=== PATIENT | female | born 1995 | race Caucasian/White ===

== ENCOUNTER 2016-11-21 14:07 | Emergency (ER) | payer OTHER ==
[~2016-11-21] VITALS: Ht 167.6 cm; Wt 95.3 kg
--- NOTE | 2016-11-21 14:28 | PHYS DOC ---
Past History Past Medical History: Asthma, Depression Past Surgical History: No Surgical History Alcohol Use: None Drug Use: None Adult General Chief Complaint Chief Complaint: KNEE INJURY HPI HPI This is a 21-year-old female with history of asthma who states she developed significant right knee pain while running up hill. She still states she felt a sharp sensation to her right knee and then fell forward. She does states she has some mild anterior tibial pain as well as right knee pain that denies any other injuries. She denies hitting her head. She believes she got symptomatically short of breath because of her asthma. On my initial assessment , the patient is saturating near 100% on room air and in no acute distress whatsoever. Review of Systems Review of Systems Constitutional: Denies fever or chills [] Eyes: Denies change in visual acuity, redness, or eye pain [] HENT: Denies nasal congestion or sore throat [] Respiratory: Denies cough or shortness of breath [] Cardiovascular: No additional information not addressed in HPI [] GI: Denies abdominal pain, nausea, vomiting, bloody stools or diarrhea [] : Denies dysuria or hematuria [] Musculoskeletal: Denies back pain or joint pain [] Integument: Denies rash or skin lesions [] Neurologic: Denies headache, focal weakness or sensory changes [] Endocrine: Denies polyuria or polydipsia [] Current Medications Current Medications Current Medications Medications (Trade) Dose Ordered Sig/Courtney Start Time Stop Time Status Last Admin Dose Admin Acetaminophen/ Hydrocodone Bitart (Lortab 5/325) 1 tab 1X ONCE 11/21/16 14:30 11/21/16 14:31 UNV Allergies Allergies Allergies Coded Allergies Type Severity Reaction Last Updated Verified amoxicillin Allergy Unknown 01/08/16 Yes clavulanic acid Allergy Unknown 01/08/16 Yes ondansetron Allergy Unknown 01/08/16 Yes Physical Exam Physical Exam Constitutional: Well developed, well nourished, no acute distress, non-toxic appearance. [] HENT: Normocephalic, atraumatic, bilateral external ears normal, oropharynx moist, no oral exudates, nose normal. [] Eyes: PERRLA, EOMI, conjunctiva normal, no discharge. [] Neck: Normal range of motion, no tenderness, supple, no stridor. [] Cardiovascular:Heart rate regular rhythm, no murmur [] Lungs & Thorax: Bilateral breath sounds clear to auscultation [] Abdomen: Bowel sounds normal, soft, no tenderness, no masses, no pulsatile masses. [] Skin: Warm, dry, no erythema, no rash. [] Back: No tenderness, no CVA tenderness. [] Extremities: Right sided knee tenderness to palpation, there is no palpable deformity, no cyanosis, no clubbing, ROM limited in right knee secondary to pain , no edema. [] Neurologic: Alert and oriented X 3, normal motor function, normal sensory function, no focal deficits noted. [] Psychologic: Affect normal, judgement normal, mood normal. [] EKG EKG [] Radiology/Procedures Radiology/Procedures [] Course & Med Decision Making Course & Med Decision Making Pertinent Labs and Imaging studies reviewed. (See chart for details) This otherwise healthy 21-year-old female will have a knee x-ray and a dose of [place]. Her history is more consistent with a soft tissue injury of her knee. Likely be placed in a knee immobilizer and given crutches and told to follow with her primary care doctor or the surgeon if her symptoms should persist. Her right knee x-rays negative for any acute bony injury. Patient will be placed in a knee immobilizer provided crutches. Follow-up appointment is recommended that she still could have a significant tendon or ligament injury. She will remain nonweightbearing on that side and follow up next several days if her symptoms should persist. She was instructed to avoid any strenuous activities until that time. Dragon Disclaimer Dragon Disclaimer This chart was dictated in whole or in part using Voice Recognition software in a busy, high-work load, and often noisy Emergency Department environment. It may contain unintended and wholly unrecognized errors or omissions. Departure Departure: Impression: Primary Impression: Right knee injury Disposition: 01 HOME, SELF-CARE Condition: STABLE Referrals: IGNACIO MAZA MD (PCP) Patient Instructions: Knee Immobilizer, [id number], Knee Pain, [id number] Additional Instructions: Knee immobilizer and use crutches until he can be reevaluated regular doctor for your knee injury. Continue to take 800 mg of ibuprofen every 6 hours as needed for symptoms. Take your pain medication only as needed. Keep the extremity elevated and iced to help with any swelling. Avoid any stress activities until that time that you can be reevaluated. Scripts Hydrocodone Bit/Acetaminophen ([place] 5-325 Tablet)1 Each Tablet1 Tab PO PRN Q6HRS PRN PAIN #6 TAB Ref 0 Prov:MOISES CHRISTIANSON DO 11/21/16 MOISES CHRISTIANSON DO Nov 21, 2016 14:28
[2016-11-21] MEDS ORDERED: HYDROCODONE/APAP 5/325MG TABLET. PO ONE (14:45)
--- NOTE | 2016-11-21 15:11 | RAD ---
Right knee, 3 views, 11/21/2016: History: Fall, pain No fracture or or dislocation is identified. No significant joint effusion is seen. IMPRESSION: No acute right knee abnormality is detected.
[2016-11-21] MEDS ORDERED: HYDR-971 PO (15:33)
[2016-11-21 15:40] VITALS: BP 114/66
== END 2016-11-21 15:45 | disposition home or self-care (01) ==
LOC: ER 14:07
DX: S89.91XA Unspecified injury of right lower leg, initial encounter (principal); J45.909 Unspecified asthma, uncomplicated; Z88.1 Allergy status to other antibiotic agents; Z88.8 Allergy status to other drugs, medicaments and biological substances; W19.XXXA Unspecified fall, initial encounter; Y93.02 Activity, running; Y99.8 Other external cause status; Y92.828 Other wilderness area as the place of occurrence of the external cause
CPT/HCPCS: 29505; 73562; 81025; 84703; 99284-25

== ENCOUNTER 2017-06-15 13:27 | Emergency (ER) | payer BC, OTHER ==
[~2017-06-15 13:27] MED LIST: HYDR-971 PO
[2017-06-15 13:35] VITALS: BP 104/65
[2017-06-15] MEDS ORDERED: PRED20TA PO (13:55)
[2017-06-15] MEDS ORDERED: CLIN300C8 PO (13:55)
--- NOTE | 2017-06-15 13:58 | PHYS DOC ---
General Chief Complaint: SORE THROAT Stated Complaint: SORE THROAT Time Seen by MD: 13:55 Source: patient Exam Limitations: no limitations Problems: History of Present Illness Initial Comments Patient is a 22-year-old female who comes in the ED complaining of sore throat. Patient states she's had a worsening sore throat since last night. She's had pain with swallowing no actual dyspnea but states she did wake up gasping for breath and had trouble sleeping all night. She called into work sick today and needs a note, she's had no measured fevers but has had chills and sweats as well as body ache and headache. She's been drinking well but not eating many solids foods due to discomfort. No neck stiffness rash nausea vomiting or other symptoms. Timing/Duration: gradual, yesterday Severity: moderate Location: throat Prearrival Treatment: over the counter meds Modifying Factors: worse with coughing Associated Symptoms: fever, nasal congestion/drainage, poor solids intake, sore throat Allergies: Coded Allergies: amoxicillin (Verified Allergy, Unknown, 01/08/16) clavulanic acid (Verified Allergy, Unknown, 01/08/16) ondansetron (Verified Allergy, Unknown, 01/08/16) Past Medical History Medical History: asthma, other (depression, anxiety) Surgical History: noncontributory Social History Smoker: quit greater than 1 year Alcohol: occasionally Drugs: none Constitutional: see HPI Ears: denies dizziness, denies pain, denies tinnitus Nose: denies clots, congestion, denies epistaxis Throat: see HPI, denies neck stiffness, denies difficulty with fluids Respiratory: cough, denies shortness of breath, denies stridor, denies wheezing Cardiovascular: denies chest pain, denies palpitations Gastrointestinal: denies abdominal pain, denies nausea, denies vomiting Physical Exam General Appearance: no apparent distress Eyes: bilateral eye normal inspection, bilateral eye PERRL, bilateral eye EOMI Ears: bilateral ear auricle normal, bilateral ear canal normal, bilateral ear TM normal Nose: normal inspection Mouth/Throat: normal mouth inspection, pharynx tenderness (no exudate or vesicles), tonsillar swelling (tonsils 2+ airway is patent) Neck: non-tender, supple, lymphadenopathy (R), lymphadenopathy (L) Cardiovascular/Respiratory: normal breath sounds, no respiratory distress Neurologic/Psychiatric: stitcher around II-XII nml as tested, no motor/sensory deficits, alert, normal mood/affect, oriented x 3 Skin: normal color, warm/dry Orders, Labs, Meds We'll treat with antibiotics for tonsillitis as well as steroids to decrease tonsillar swelling and preserve the airway. I discussed [id number] prescription medications as well as time off from work. I discussed oral hydration and dietary modifications and signs and symptoms to monitor for as well as indications to return urgently were discussed. Patient's questions were answered she was provided no for work and she expressed agreement and understanding with the treatment plan. Departure Time of Disposition: 13:57 Disposition: 01 HOME, SELF-CARE Diagnosis: tonsillitis Condition: GOOD Patient Instructions: Tonsillitis, [id number] Additional Instructions: Off work tomorrow, note given. Aggressive hydration with Gatorade or water. [id number] Tylenol, ibuprofen, and analgesic throat sprays as needed. Continue current medications. Prescription: Clindamycin, prednisone Follow-up with your doctor in 5-7 days for recheck. Return to the ED with new or changing symptoms. DIANN URBINA DO Jun 15, 2017 13:58
== END 2017-06-15 14:00 | disposition home or self-care (01) ==
LOC: ER 13:27
DX: J03.90 Acute tonsillitis, unspecified (principal); J45.909 Unspecified asthma, uncomplicated; Z87.891 Personal history of nicotine dependence; Z88.1 Allergy status to other antibiotic agents; Z88.8 Allergy status to other drugs, medicaments and biological substances
CPT/HCPCS: 99283

== ENCOUNTER 2020-05-18 06:02 | Emergency (ER) | payer BC, OTHER ==
[~2020-05-18] VITALS: Ht 167.6 cm; Wt 93.6 kg
[~2020-05-18 06:02] MED LIST changes: +CLIN300C8 PO; +HYDR-3165 PO; -HYDR-971 PO; +PRED20TA PO
[2020-05-18 06:05] VITALS: BP 123/71
--- NOTE | 2020-05-18 06:30 | PHYS DOC ---
Past History Past Medical History: Anxiety, Asthma, Depression Past Surgical History: Other Alcohol Use: Occasionally Drug Use: None General Adult EDM: Chief Complaint: LOWER EXT PAIN HPI: HPI: Patient is a 25 year old female who presents for evaluation of moderate pain and swelling to her right knee. Symptoms have been worse over the past couple of days. She now has difficulty bearing weight on the affected knee due to pain. Patient has a longstanding history of rheumatoid arthritis and does see a cigarette maker. Patient currently takes Plaquenil but is out of her meloxicam. She also was starting Enbrel injections shortly as well. Patient is tearful and in mild to moderate distress on arrival. Patient had a recent steroid injection on May 10 as well in that affected knee Review of Systems: Review of Systems: Constitutional: Denies fever or chills Eyes: Denies change in visual acuity HENT: Denies nasal congestion or sore throat Respiratory: Denies cough or shortness of breath Cardiovascular: Denies chest pain or edema GI: Denies abdominal pain, nausea, vomiting, bloody stools or diarrhea : Denies dysuria Musculoskeletal: Denies back pain right knee joint pain Integument: Denies rash Neurologic: Denies headache, focal weakness or sensory changes Endocrine: Denies polyuria or polydipsia Lymphatic: Denies swollen glands Psychiatric: Denies depression or anxiety Allergies: Allergies: Allergies Coded Allergies Type Severity Reaction Last Updated Verified amoxicillin Allergy Unknown 01/08/16 Yes clavulanic acid Allergy Unknown 01/08/16 Yes ondansetron Allergy Unknown 01/08/16 Yes Physical Exam: PE: Constitutional: Well developed, well nourished, mild acute distress, non-toxic appearance. [] HENT: Normocephalic, atraumatic, bilateral external ears normal, oropharynx moist, no oral exudates, nose normal. [] Eyes: PERRL, EOMI, conjunctiva normal, no discharge. [] Neck: Normal range of motion, no tenderness, supple. [] Cardiovascular:Heart rate regular rhythm, no murmur [] Lungs & Thorax: Bilateral breath sounds clear to auscultation [] Abdomen: Bowel sounds normal, soft, no tenderness. [] Skin: Warm, dry, no erythema, no rash. [] Back: No tenderness. [] Extremities: moderate right knee tenderness, no cyanosis, ROM intact, right edema but not ballotable. [] Neurologic: Alert and oriented, normal motor function, normal sensory function, no focal deficits noted. [] Psychologic: Affect abnormal, judgement normal, mood abnormal. [] Current Patient Data: Labs: [address] [address] IMAGING REPORT Signed PATIENT: LUPE BENITEZ ACCOUNT: [id number] : 1995 LOCATION: ER AGE: 25 SEX: F EXAM STATUS: REG ER ORD. PHYSICIAN: MARBELLA BARNES DO REASON: pain, swelling PROCEDURE: KNEE RIGHT 3V Right knee 3 views. HISTORY: Pain and swelling 3 views were taken of the right knee. There is not evidence of an acute fracture. There is a large joint effusion. No other acute osseous abnormality is noted. MRI could be of benefit. IMPRESSION: 1. Prominent joint effusion. 2. No acute fracture. Electronically signed by: Jr Phillips MD (05/18/2020 7:08 AM) [id number] DICTATED AND SIGNED BY: JR PHILLIPS MD DATE: 05/18/20707 CC: MARBELLA BARNSE DO; IGNACIO MAZA MD ~ EKG: EKG: [] Radiology/Procedures: Radiology/Procedures: [] Heart Score: Risk Factors: Risk Factors: DM, Current or recent (<one month) smoker, HTN, HLP, family history of CAD, obesity. Risk Scores: Score 0 - 3: 2.5% MACE over next 6 weeks - Discharge Home Score 4 - 6: 20.3% MACE over next 6 weeks - Admit for Clinical Observation Score 7 - 10: 72.7% MACE over next 6 weeks - Early Invasive Strategies Course & Med Decision Making: Course & Med Decision Making Pertinent Labs and Imaging studies reviewed. (See chart for details) [] Dragon Disclaimer: Vee Disclaimer: This electronic medical record was generated, in whole or in part, using a voice recognition dictation system. 0715 stable, no fractures noted on x-ray, right knee effusion noted. Patient was given right knee immobilizer and crutches to use as directed for the next 5 days. Work note for 2 days off given as well. Prescription for meloxicam and Medrol Dosepak given. Supportive care recommended. Patient is to see her cigarette maker right away in follow-up Departure Departure: Impression: Primary Impression: Effusion, right knee Additional Impression: Rheumatoid arthritis Qualified Codes: M06.9 - Rheumatoid arthritis, unspecified Disposition: HOME SELF CARE/HOMELESS Condition: STABLE Referrals: IGNACIO MAZA MD (PCP) Patient Instructions: Knee Effusion, Rheumatoid Arthritis Additional Instructions: Rest ice today and elevate the affected right knee. Take medication as directed. Use the knee immobilizer for the next few days as well as crutches to help limit weightbearing on that affected leg Scripts Methylprednisolone (MEDROL) 4 Mg Tab.ds.pk 1 PKG PO UD for arthritis, #1 PKG Prov: MARBELLA BARNES DO 05/18/20 Meloxicam (MELOXICAM) 7.5 Mg Tablet 1 TAB PO DAILY for rheumatoid arthritis for 30 Days, #30 TAB 0 Refills Prov: MARBELLA BARNES DO 05/18/20 MARBELLA BARNES DO May 18, 2020 06:30
[2020-05-18] MEDS ORDERED: KETOROLAC 30 MG/ML VIAL. IM ONE (07:00)
--- NOTE | 2020-05-18 07:10 | RAD ---
Right knee 3 views. HISTORY: Pain and swelling 3 views were taken of the right knee. There is not evidence of an acute fracture. There is a large joint effusion. No other acute osseous abnormality is noted. MRI could be of benefit. IMPRESSION: 1. Prominent joint effusion. 2. No acute fracture. Electronically signed by: Jr Phillips MD (05/18/2020 7:08 AM) [id number]
[2020-05-18] MEDS ORDERED: METH4TAB2 PO (07:23)
[2020-05-18] MEDS ORDERED: MELO7.5T29 PO (07:23)
== END 2020-05-18 08:05 | disposition home or self-care (01) ==
LOC: ER 06:02
DX: M06.9 Rheumatoid arthritis, unspecified (principal); M25.561 Pain in right knee; R60.0 Localized edema; F41.9 Anxiety disorder, unspecified; J45.909 Unspecified asthma, uncomplicated; F32.9 Major depressive disorder, single episode, unspecified; Z98.890 Other specified postprocedural states; Z88.1 Allergy status to other antibiotic agents; Z88.8 Allergy status to other drugs, medicaments and biological substances
CPT/HCPCS: 29515; 73562; 96372; 99283; J1885

== ENCOUNTER 2020-06-03 17:34 | Emergency (ER) | payer OTHER ==
[~2020-06-03] VITALS: Ht 167.6 cm; Wt 93.6 kg
[~2020-06-03 17:34] MED LIST changes: +MELO7.5T29 PO; +METH4TAB2 PO
--- NOTE | 2020-06-03 18:29 | PHYS DOC ---
Past History Past Medical History: Anxiety, Arthritis, Asthma, Depression Past Surgical History: Other Alcohol Use: None Drug Use: None Adult General Chief Complaint Chief Complaint: KNEE INJURY HPI HPI Patient is a 25 year old female who presents with right knee swelling after doing heavy lifting at work this past . Patient states she has a long severe history of rheumatoid arthritis and is currently taking Enbrel injections at home once a week. Patient states that she does get flareups every now and then reporting her last knee swelling flareup approximately a month ago. Patient states that she usually gets good relief with elevation and an injection of Toradol. Patient denies any acute injury to her knee stating that this looks like her normal rheumatoid arthritis flareup after working too hard. Patient rates her pain a 3/10 pain on a 1-10 pain scale. Patient denies a need for a work excuse stating that she has to go to work. Patient denies any recent fever or chills, any visual changes, nasal congestion, cough or shortness of breath. Patient denies chest pain abdominal pains nausea vomiting diarrhea constipation. Patient denies any problems urinating, denies any STI concerns. Patient denies any back pain skin rashes, headaches, focal weaknesses or sensory changes. Patient denies any increased urination or increased thirst. Patient denies swelling of her glands. Patient denies depressions, anxieties, homicidal or suicidal ideations. Patient denies coming in contact with anybody that has the COVID-19 virus, denies any symptoms for the COVID-19 virus, she does not wish to be tested today. Review of Systems Review of Systems Constitutional: Denies fever or chills Eyes: Denies change in visual acuity, redness, or eye pain HENT: Denies nasal congestion or sore throat Respiratory: Denies cough or shortness of breath Cardiovascular: Denies chest pain or edema. GI: Denies abdominal pain, nausea, vomiting, bloody stools or diarrhea : Denies dysuria or hematuria Musculoskeletal: Denies back pain, complains of pain to the right knee along with swelling to the right knee since doing hard work 2 days ago on . Integument: Denies rash or skin lesions Neurologic: Denies headache, focal weakness or sensory changes Endocrine: Denies polyuria or polydipsia Psychiatric: Patient denies homicidal or suicidal ideation, denies recent depressions or anxieties. All other systems were reviewed and found to be within normal limits, except as documented in this note. Current Medications Current Medications Patient states that she takes Enbrel injections at home once per week. Patient also takes meloxicam, and occasional Solu-Medrol when prescribed by her primary care physician, as needed [place] 5-325 tablets as needed for pain. Allergies Allergies Allergies Coded Allergies Type Severity Reaction Last Updated Verified amoxicillin Allergy Unknown 01/08/16 Yes clavulanic acid Allergy Unknown 01/08/16 Yes ondansetron Allergy Unknown 01/08/16 Yes Physical Exam Physical Exam Constitutional: Well developed, well nourished, no acute distress, non-toxic appearance. HENT: Normocephalic, atraumatic, bilateral external ears normal, oropharynx moist, no oral exudates, nose normal. Eyes: PERRLA, EOMI, conjunctiva normal, no discharge. Neck: Normal range of motion, no tenderness, supple, no stridor. Cardiovascular:Heart rate regular rhythm, no murmur to auscultation Lungs & Thorax: Bilateral breath sounds clear to auscultation all lung max Abdomen: Bowel sounds normal all 4 quadrants, soft, no tenderness, no masses, no pulsatile masses. Skin: Warm, dry, no erythema, no rash. Back: No tenderness, no CVA tenderness. Extremities: No tenderness, no cyanosis, no clubbing, ROM intact, no edema to all extremities except for her right knee presents with soft tissue swelling her skin is not red no infectious process appreciated, temperature normal, no inflammation noted, no fluid appreciated with palpation to patella, no bulge sign noted negative Matias's test, negative John's test, negative anterior drawer test, no tendon pathology appreciated. No crepitus noted, full AROM/PROM. Knee joint intact. Neurologic: Alert and oriented X 3, normal motor function, normal sensory function, no focal deficits noted. Psychologic: Affect normal, judgement normal, mood normal. EKG EKG [] Radiology/Procedures Radiology/Procedures [] Heart Score Risk Factors: Risk Factors: DM, Current or recent (<one month) smoker, HTN, HLP, family history of CAD, obesity. Risk Scores: Risk Factors: DM, Current or recent (<one month) smoker, HTN, HLP, family history of CAD, obesity. Course & Med Decision Making Course & Med Decision Making Pertinent Labs and Imaging studies reviewed. (See chart for details) 25-year-old female reported to the emergency department with complaints of right knee swelling after strenuous work 2 days ago last . Patient states she has a history of severe RA she had most of her life and takes Enbrel injecti ons at home once a week with good results. Patient states however intermittently she gets joint swelling when she overworks or overexerts herself. Patient reports this is a normal RA exacerbation for her, she wished to have an injection of Toradol and to be sent home. Physical examination was negative for tendinous involvement or acute knee injury. Given patient's history she w ill be given 60 mg of Toradol IM along with 80 mg Depo-Medrol IM, her right knee will be Leodan wrapped. Discussed findings with patient, discussed that she should elevate her knee at home. Offered work excuse for Friday, patient states that she needs to work and will elevate her knee. Also discussed with patient need to follow-up with her primary care physician for long-term excuse for light duty so that she does not have exacerbations of joint swelling related to her rheumatoid arthritis. Patient gave verbal understanding of discharge instructions, follow-up with primary care doctor instructions, return to ER concerns. Patient had no further questions or concerns. Patient discharged home without incident. Dragon Disclaimer Dragon Disclaimer This electronic medical record was generated, in whole or in part, using a voice recognition dictation system. Departure Departure: Impression: Primary Impression: Pain and swelling of right knee Additional Impression: Rheumatoid arthritis flare Disposition: 01 DC HOME SELF CARE/HOMELESS Condition: STABLE Referrals: IGNACIO MAZA MD (PCP) Patient Instructions: Knee Immobilization Additional Instructions: Use Leodan wrap as needed elevate your right leg to reduce knee swelling, see your doctor soon regarding long-term light duty work excuse. Problem Qualifiers BARBARA DONALD APRN Jun 03, 2020 18:29
[2020-06-03] MEDS ORDERED: methylPREDNISolone ACETATE 80 MG/ML VIAL. IM ONE (18:30)
[2020-06-03] MEDS ORDERED: KETOROLAC 60 MG/2 ML VIAL. IM ONE (18:30)
[2020-06-03 18:50] VITALS: BP 115/79
== END 2020-06-03 18:55 | disposition home or self-care (01) ==
LOC: ER 17:34
DX: M06.861 Other specified rheumatoid arthritis, right knee (principal); M25.561 Pain in right knee; R22.41 Localized swelling, mass and lump, right lower limb; J45.909 Unspecified asthma, uncomplicated; Z88.1 Allergy status to other antibiotic agents; Z88.8 Allergy status to other drugs, medicaments and biological substances
CPT/HCPCS: 96372; 99284; J1040; J1885

== ENCOUNTER 2020-06-28 16:06 | Emergency (ER) | payer OTHER ==
[~2020-06-28] VITALS: Ht 167.6 cm; Wt 95.4 kg
[2020-06-28] MEDS ORDERED: PRED20TA PO (16:36)
--- NOTE | 2020-06-28 16:38 | PHYS DOC ---
Past History Past Medical History: Anxiety, Arthritis, Asthma, Bipolar, Depression Past Surgical History: Other Additional Past Surgical Histo: ADENOIDS, EUSTACIAN TUBES Alcohol Use: None Drug Use: None General Adult EDM: Chief Complaint: LOWER EXT PAIN HPI: HPI: Patient is a [age] year old [sex] who presents with [] Review of Systems: Review of Systems: Constitutional: Denies fever or chills Eyes: Denies change in visual acuity HENT: Denies nasal congestion or sore throat Respiratory: Denies cough or shortness of breath Cardiovascular: Denies chest pain or edema GI: Denies abdominal pain, nausea, vomiting, bloody stools or diarrhea : Denies dysuria Musculoskeletal: Denies back pain or joint pain Integument: Denies rash Neurologic: Denies headache, focal weakness or sensory changes Endocrine: Denies polyuria or polydipsia Lymphatic: Denies swollen glands Psychiatric: Denies depression or anxiety Allergies: Allergies: Allergies Coded Allergies Type Severity Reaction Last Updated Verified amoxicillin Allergy Unknown 06/28/20 Yes clavulanic acid Allergy Unknown 06/28/20 Yes ondansetron Allergy Unknown 06/28/20 Yes sertraline Allergy Unknown 06/28/20 Yes Physical Exam: PE: Constitutional: Well developed, well nourished, no acute distress, non-toxic appearance. [] HENT: Normocephalic, atraumatic, bilateral external ears normal, oropharynx moist, no oral exudates, nose normal. [] Eyes: PERRLA, EOMI, conjunctiva normal, no discharge. [] Neck: Normal range of motion, no tenderness, supple, no stridor. [] Cardiovascular:Heart rate regular rhythm, no murmur [] Lungs & Thorax: Bilateral breath sounds clear to auscultation [] Abdomen: Bowel sounds normal, soft, no tenderness, no masses, no pulsatile masses. [] Skin: Warm, dry, no erythema, no rash. [] Back: No tenderness, no CVA tenderness. [] Extremities: No tenderness, no cyanosis, no clubbing, ROM intact, no edema. [] Neurologic: Alert and oriented X 3, normal motor function, normal sensory function, no focal deficits noted. [] Psychologic: Affect normal, judgement normal, mood normal. [] EKG: EKG: [] Radiology/Procedures: Radiology/Procedures: [] Heart Score: Risk Factors: Risk Factors: DM, Current or recent (<one month) smoker, HTN, HLP, family history of CAD, obesity. Risk Scores: Score 0 - 3: 2.5% MACE over next 6 weeks - Discharge Home Score 4 - 6: 20.3% MACE over next 6 weeks - Admit for Clinical Observation Score 7 - 10: 72.7% MACE over next 6 weeks - Early Invasive Strategies Course & Med Decision Making: Course & Med Decision Making Pertinent Labs and Imaging studies reviewed. (See chart for details) [] Dragon Disclaimer: Dragon Disclaimer: This electronic medical record was generated, in whole or in part, using a voice recognition dictation system. Departure Departure: Impression: Primary Impression: Right knee pain Qualified Codes: M25.561 - Pain in right knee Additional Impression: History of rheumatoid arthritis Disposition: 01 DC HOME SELF CARE/HOMELESS Condition: STABLE Referrals: IGNACIO MAZA MD (PCP) Patient Instructions: Rheumatoid Arthritis, [id number] Additional Instructions: Use crutches. ICE area of discomfort 20 min on then leave off next 20 mins. Repeat several times daily for next few days. May use over the counter Ibuprofen or Naproxen for pain in addition to Tylenol. Follow closely with your Service Counter Cashier. Scripts Prednisone (PREDNISONE) 20 Mg Tablet 2 TAB PO DAILY for Arthritis, #8 TAB Start this prescription tomorrow, 06/29/20. Prov: BARBARA HANCOCK DO 06/28/20 BARBARA HANCOCK DO Jun 28, 2020 16:38
[2020-06-28] MEDS ORDERED: DEXAMETHASONE 4 MG TABLET PO ONE (16:45)
[2020-06-28] MEDS ORDERED: KETOROLAC 30 MG/ML VIAL. IM ONE (16:45)
[2020-06-28 17:00] VITALS: BP 120/86
== END 2020-06-28 17:00 | disposition home or self-care (01) ==
LOC: ER 16:06
DX: M25.561 Pain in right knee (principal); M06.9 Rheumatoid arthritis, unspecified; F41.9 Anxiety disorder, unspecified; M19.90 Unspecified osteoarthritis, unspecified site; J45.909 Unspecified asthma, uncomplicated; F31.9 Bipolar disorder, unspecified; Z88.1 Allergy status to other antibiotic agents; Z88.8 Allergy status to other drugs, medicaments and biological substances
CPT/HCPCS: 96372; 99283; J1885; J8540

== ENCOUNTER → 2020-12-01 | Outpatient (CLI) | payer OTHER ==
[~2020-12-01] MED LIST changes: -CLIN300C8 PO; +CLIN300C9 PO
--- NOTE | 2020-12-01 13:30 | RAD ---
EXAMINATION: US BREAST RT, 12/01/2020 1:03 PM CLINICAL INDICATION: 25-year-old woman presenting for right lateral breast pain. Previously felt a l ump in this region. The patient when to the doctor, he did not feel the lump. The patient no longer f eels the lump but now has pain in that area. COMPARISON: None. TECHNIQUE: Targeted ultrasound of area of palpable concern was performed. FINDINGS: There is normal fibroglandular tissue. No cyst or mass visualized. IMPRESSION: 1. No evidence of malignancy. 2. BI-RADS 1: Negative. 3. Recommend that the patient follows up with her physician, and any additional imaging should be bas ed on clinical recommendations. Electronically signed by: Leighann Beckwith MD (12/01/2020 1:27 PM) [id number]
== END ==
LOC: US 12:46
PROVIDERS: ATTEND Family Medicine
DX: N64.4 Mastodynia (principal)
CPT/HCPCS: 76641

== ENCOUNTER 2020-12-19 20:40 | Emergency (ER) | payer OTHER ==
[~2020-12-19] VITALS: Ht 167.6 cm; Wt 99.5 kg
[2020-12-19] MEDS ORDERED: IV NORMAL SALINE 1,000ML 1,000 ML IV ONE (21:15)
[2020-12-19] MEDS ORDERED: DEXAMETHASONE SOD PHOS 10 MG/ML VIAL. IVP ONE (21:15)
[2020-12-19] MEDS ORDERED: KETOROLAC 15 MG/ML VIAL. IVP ONE (21:15)
[2020-12-19 21:36] LABS: BASO # 0.1 x10^3/uL (0.0-0.2); BASO % 1 % (0-3); EOS # 0.3 x10^3/uL (0.0-0.7); EOS % 3 % (0-3); HEMATOCRIT 38.8 % (36.0-47.0); HEMOGLOBIN 12.8 g/dL (12.0-15.5); LYMPH # 2.4 x10^3/uL (1.0-4.8); LYMPH % 21 % (24-48); MEAN CORPUSCULAR HEMOGLOBIN 28 pg (25-35); MEAN CORPUSCULAR HGB CONC 33 g/dL (31-37); MEAN CORPUSCULAR VOLUME 84 fL (79-100); MONO # 1.1 x10^3/uL (0.0-1.1); MONO % 9 % (0-9); NEUT # 7.7 x10^3uL (1.8-7.7); NEUT % 66 % (31-73); PLATELET COUNT 304 x10^3/uL (140-400); RED BLOOD COUNT 4.63 x10^6/uL (3.50-5.40); RED CELL DISTRIBUTION WIDTH 15.6 % (11.5-14.5); WHITE BLOOD COUNT 11.6 x10^3/uL (4.0-11.0)
[2020-12-19 21:46] LABS: CREATININE 0.7 mg/dL (0.6-1.0); POTASSIUM 3.9 mmol/L (3.5-5.1)
[2020-12-19 21:49] VITALS: BP 98/53
[2020-12-19 21:57] LABS: ALBUMIN 3.7 g/dL (3.4-5.0); ALBUMIN/GLOBULIN RATIO 0.9 (1.0-1.7); TOTAL BILIRUBIN 0.3 mg/dL (0.2-1.0); TOTAL PROTEIN 7.8 g/dL (6.4-8.2)
--- NOTE | 2020-12-19 22:08 | PHYS DOC ---
Past History Past Medical History: Anxiety, Arthritis, Asthma, Bipolar, Depression Past Surgical History: Other Additional Past Surgical Histo: ADENOIDS, eustachian tube Smoking: Quit Greater Than 1 Year Alcohol Use: Rarely Drug Use: Marijuana General Adult EDM: Chief Complaint: COUGH HPI: HPI: 25-year-old female presents with 2-day history of nasal congestion, shortness of air, and productive cough with green sputum. Patient reports today she has intermittently been coughing up "spurts of blood ". Denies fever or chills. Patient does report some increased fatigue. Patient does not think she is however is not currently on control. Denies leg swelling or calf tenderness. Denies history of PE/DVT. Patient does have a history of asthma. Reports using her rescue inhaler prior to arrival. Denies use of blood thinners. Denies trauma. Denies recent surgery. Review of Systems: Review of Systems: Constitutional: Denies fever or chills; reports fatigue Eyes: Denies redness or eye pain HENT: Denies sore throat; reports nasal congestion Respiratory: Reports productive cough, hemoptysis, and shortness of breath Cardiovascular: Denies chest pain or palpitations GI: Denies abdominal pain, nausea, or vomiting : Denies dysuria or hematuria Musculoskeletal: Denies back pain or joint pain Integument: Denies rash or skin lesions Neurologic: Denies headache, focal weakness or sensory changes Complete systems were reviewed and found to be within normal limits, except as documented in this note. Current Medications: Current Meds: Current Medications Medications (Trade) Dose Ordered Sig/Courtney Start Time Stop Time Status Last Admin Dose Admin Dexamethasone Sodium Phosphate (Decadron) 10 mg 1X ONCE 12/19/20 21:15 12/19/20 21:16 DC 12/19/20 21:22 10 MG Ketorolac Tromethamine (Toradol 15mg Vial) 15 mg 1X ONCE 12/19/20 21:15 12/19/20 21:16 DC 12/19/20 21:22 15 MG Sodium Chloride 1,000 ml @ 1,000 mls/hr 1X ONCE 12/19/20 21:15 12/19/20 22:14 12/19/20 21:22 1,000 MLS/HR Allergies: Allergies: Allergies Coded Allergies Type Severity Reaction Last Updated Verified amoxicillin Allergy Unknown 06/28/20 Yes clavulanic acid Allergy Unknown 06/28/20 Yes ondansetron Allergy Unknown 06/28/20 Yes sertraline Allergy Unknown 06/28/20 Yes Physical Exam: PE: Constitutional: Well developed, well nourished, no acute distress, non-toxic appearance HENT: Normocephalic, atraumatic, no nasal congestion appreciated, pharynx clear and without erythema or exudate Eyes: Conjunctiva normal, no discharge Neck: Normal range of motion, no tenderness, supple Lungs & Thorax: No respiratory distress, equal chest rise and fall Abdomen: Soft, no tenderness Skin: Warm, dry, no erythema, no rash Extremities: No tenderness, ROM intact, no edema Neurologic: Alert and oriented X 3, no focal deficits noted Psychologic: Affect normal, judgment normal Current Patient Data: Labs: Laboratory Tests Test 12/19/20 21:13 White Blood Count 11.6 x10^3/uL (4.0-11.0) H Red Blood Count 4.63 x10^6/uL (3.50-5.40) Hemoglobin 12.8 g/dL (12.0-15.5) Hematocrit 38.8 % (36.0-47.0) Mean Corpuscular Volume 84 fL (79-100) Mean Corpuscular Hemoglobin 28 pg (25-35) Mean Corpuscular Hemoglobin Concent 33 g/dL (31-37) Red Cell Distribution Width 15.6 % (11.5-14.5) H Platelet Count 304 x10^3/uL (140-400) Neutrophils (%) (Auto) 66 % (31-73) Lymphocytes (%) (Auto) 21 % (24-48) L Monocytes (%) (Auto) 9 % (0-9) Eosinophils (%) (Auto) 3 % (0-3) Basophils (%) (Auto) 1 % (0-3) Neutrophils # (Auto) 7.7 x10^3uL (1.8-7.7) Lymphocytes # (Auto) 2.4 x10^3/uL (1.0-4.8) Monocytes # (Auto) 1.1 x10^3/uL (0.0-1.1) Eosinophils # (Auto) 0.3 x10^3/uL (0.0-0.7) Basophils # (Auto) 0.1 x10^3/uL (0.0-0.2) Prothrombin Time 10.5 SEC (9.4-11.4) Prothrombin Time INR 1.0 (0.9-1.1) Activated Partial Thromboplast Time 28 SEC (23-33) D-Dimer (Debra) 0.91 mg/L (0.00-0.50) H Sodium Level 141 mmol/L (136-145) Potassium Level 3.9 mmol/L (3.5-5.1) Chloride Level 105 mmol/L (98-107) Carbon Dioxide Level 25 mmol/L (21-32) Anion Gap 11 (6-14) Blood Urea Nitrogen 7 mg/dL (7-20) Creatinine 0.7 mg/dL (0.6-1.0) Estimated GFR (Cockcroft-Gault) 102.0 BUN/Creatinine Ratio 10 (6-20) Glucose Level 101 mg/dL (70-99) H Lactic Acid Level 0.9 mmol/L (0.4-2.0) Calcium Level 9.0 mg/dL (8.5-10.1) Total Bilirubin 0.3 mg/dL (0.2-1.0) Aspartate Amino Transferase (AST) 18 U/L (15-37) Alanine Aminotransferase (ALT) 20 U/L (14-59) Alkaline Phosphatase 73 U/L (46-116) Total Protein 7.8 g/dL (6.4-8.2) Albumin 3.7 g/dL (3.4-5.0) Albumin/Globulin Ratio 0.9 (1.0-1.7) L Vital Signs: Vital Signs Date Time Temp Pulse Resp B/P (MAP) Pulse Ox O2 Delivery O2 Flow Rate FiO2 12/19/20 21:49 98 16 98/53 (68) 95 Room Air 12/19/20 20:48 97.8 EKG: EKG: [] Radiology/Procedures: Radiology/Procedures: PROCEDURE: CT ANGIOGRAPHY CHEST Exam: CT of chest with contrast INDICATION: Short of air, hematemesis TECHNIQUE: Sequential axial images through the chest obtained following the administration of 97 mL of Isovue-370 IV contrast. Sagittal and coronal reformatted images were reconstructed from the axial data and reviewed. 3-D reformatted images were reconstructed from the axial data and reviewed. Exposure: One or more of the following in the visualized dose reduction techniques were utilized for this examination: 1. Automated exposure control 2. Adjustment of the MA and/or KV according to patient size 3. Use of iterative of reconstructive technique Comparisons: None FINDINGS: Visualized portions of the thyroid are unremarkable. Mildly enlarged left suprahilar lymph node noted. Heart size is normal. No pericardial effusion. Thoracic aorta has a normal course and caliber. Pulmonary artery is not enlarged. No pulmonary embolus identified within the main, lobar or segmental pulmonary arteries. Airways are patent. Patchy areas of groundglass opacity noted in the medial left upper lobe. No suspicious lung nodules. No pleural effusion or thickening. Visualized upper abdomen is unremarkable. No suspicious osseous lesions or acute fractures. IMPRESSION: 1. No pulmonary embolus identified within the main, lobar or segmental pulmonary arteries. 2. Patchy areas of groundglass opacity noted in the medial left upper lobe favored infectious or inflammatory in etiology. Electronically signed by: Di Nieves MD (12/19/2020 10:47 PM) [facility] Heart Score: C/O Chest Pain: N/A Course & Med Decision Making: Course & Med Decision Making Pertinent Labs and Imaging studies reviewed. (See chart for details) Patient presents with shortness of air and productive cough that is been ongoing for the past day or so. Patient reports history of intermittently coughing up blood. Patient tachycardic with low normal O2 sats. Cannot exclude PE per PERC. Labs obtained and posted to chart. WBC slightly elevated. D-dimer elevated. IV fluid hydration given. Symptomatic treatment provided. CTA chest with patchy opacities. Empiric antibiotics given. Cannot exclude COVID-19 infection. COVID-19 testing pending. Patient stable for discharge with outpatient follow-up with PCP. Discussed findings and plan with patient, who acknowledges understanding and agreement. COVID-19 CRITERIA: The patient was evaluated during the global COVID-19 pandemic, and that diagnosis was suspected/considered upon their initial presentation. Their evaluation, treatment and testing was consistent with current guidelines for patients who present with complaints or symptoms that may be related to COVID-19. Vee Disclaimer: Vee Disclaimer: This electronic medical record was generated, in whole or in part, using a voice recognition dictation system. Departure Departure: Impression: Primary Impression: Bronchitis Additional Impression: Suspected 2019 novel coronavirus infection Disposition: HOME / SELF CARE / HOMELESS Condition: STABLE Referrals: REI JUNG (PCP) Patient Instructions: Acute Bronchitis, [id number] Additional Instructions: You have been tested for or diagnosed with COVID-19. It is an infection caused by a new type of coronavirus. COVID-19 will cause cold-like or mild flu symptoms in most. It can cause more severe symptoms like problems breathing in some. There is no treatment for COVID-19. The body will clear the infection over time. Self-care will help to ease discomfort. Steps to Take: Self-Care Rest as needed. Healthy habits may help you feel better. Steps include: Choose healthy foods including fruits and vegetables. Drink water throughout the day. Get plenty of sleep each night. If you smoke, try to quit. It may ease breathing. Avoid alcohol. Keep Others Healthy The virus can spread to others. Droplets are released every time you sneeze or cough. The droplets can get into the mouth, nose, or eyes of people near you and lead to infection. To lower the chances of spreading COVID-19 to others: Stay at home until your doctor has said it is safe to leave. If you tested positive this will mean staying isolated until both of the following are true: At least 7 days have passed since the start of illness. You are free of fever for at least 72 hours without the use of medicine. During this time: - Avoid public areas, events, or transportation. Do not return to work or school until your doctor has said it is safe to do so. - Call ahead if you need to go to a medical center. Let them know you may have COVID-19. It will help them guide you where to go. They may also ask you to wear a facemask when you come to the office. - If you call for emergency medical services, let them know you may have COVID- 19. While at home: - Try to avoid close contact with others. Stay about 6 feet away. - If possible, spend most of your time in a separate room from others. - Use a face mask if you will be in close contact with others such as sharing a room or vehicle. - Have someone wipe down common surfaces in the home. Use household flower arranger every day on areas like doorknobs, counters, or sinks. - Cough or sneeze into a tissue. Throw the tissue away right after use. If a tissue is not available, cough or sneeze into your elbow. - Wash your hands often. Wash them after sneezing or coughing. Use soap and water and wash for at least 20 seconds. Alcohol based hand opening machine cleaner can be used if soap and water is not available. - Do not prepare food for others. Avoid sharing personal items like forks, spoons, or toothbrushes. - Avoid close contact with pets while you are sick. There is no evidence of the virus passing to pets. This is a safety step until more is known about this virus. Isolation can be frustrating. Social interaction can help. Keep in touch with friends and family through phone and tech options. You can still interact with others in you r home, just keep a safe distance of about 6 feet. Follow-up: Your doctors office will check in with you to see if there are any changes in your health. You may be asked to keep track of symptoms to share with them. They will also let you know when you are clear to be in public again. Problems to Look Out For: Contact your doctor if your recovery is not going as you expect. Get emergency care if you have problems such as: - Trouble breathing - Nonstop chest pain or pressure - Changes in awareness, confusion, or problems waking - Lips or face have bluish color - Worsening of symptoms If you think you have an emergency, call for emergency medical services right away. As taken from [facility] Scripts Prednisone (PREDNISONE) 20 Mg Tablet 2 TAB PO DAILY for Bronchitis, #8 TAB Start this prescription tomorrow, Friday12/20/20 Prov: BARBARA HANCOCK DO 12/19/20 Azithromycin (AZITHROMYCIN TABLET) 250 Mg Tablet 1 PKG PO UD for bronchitis, #6 TAB Take 2 tablets today and then one tablet every day thereafter for the next 4 days Prov: BARBARA HANCOCK DO 12/19/20 COVID-19 Assessment COVID-19 Patient Risks: Age 65 or older: No Sign of co-morbidity: No Exp to person + for COVID: No Exp to PUI: No Travel from affected area: No Lower respiratory symptoms: Yes Fever: No Other: Yes PPE Use: Full PPE with N95 mask or PAPR: Yes PERC Rule for PE PERC Rule for PE Response (Comments) Value Age > 50: No 0 HR > 100: Yes 1 Sa02 on room air <95%: Yes 1 Unilateral leg swelling: No 0 Hemoptysis: No 0 Recent surgery or trauma: No 0 Prior PE or DVT: No 0 Hormone use: No 0 Total 2 HANCOCK,BARBARA Pruitt DO December 19, 2020 22:08
[2020-12-19] MEDS ORDERED: IOHEXOL 350 MG/ML 100 ML VIAL. IV ONE (22:15)
--- NOTE | 2020-12-19 22:49 | RAD ---
Exam: CT of chest with contrast INDICATION: Short of air, hematemesis TECHNIQUE: Sequential axial images through the chest obtained following the administration of 97 mL o f Isovue-370 IV contrast. Sagittal and coronal reformatted images were reconstructed from the axial d shirley and reviewed. 3-D reformatted images were reconstructed from the axial data and reviewed. Exposure: One or more of the following in the visualized dose reduction techniques were utilized for this examination: 1. Automated exposure control 2. Adjustment of the MA and/or KV according to patient size 3. Use of iterative of reconstructive technique Comparisons: None FINDINGS: Visualized portions of the thyroid are unremarkable. Mildly enlarged left suprahilar lymph node noted . Heart size is normal. No pericardial effusion. Thoracic aorta has a normal course and caliber. Pulmon shira artery is not enlarged. No pulmonary embolus identified within the main, lobar or segmental pulmo nary arteries. Airways are patent. Patchy areas of groundglass opacity noted in the medial left upper lobe. No suspi cious lung nodules. No pleural effusion or thickening. Visualized upper abdomen is unremarkable. No suspicious osseous lesions or acute fractures. IMPRESSION: 1. No pulmonary embolus identified within the main, lobar or segmental pulmonary arteries. 2. Patchy areas of groundglass opacity noted in the medial left upper lobe favored infectious or inf lammatory in etiology. Electronically signed by: Di Nieves MD (12/19/2020 10:47 PM) [facility]
[2020-12-19] MEDS ORDERED: AZIT250T6 PO (23:03)
[2020-12-19] MEDS ORDERED: PRED20TA PO (23:03)
[2020-12-19 23:11] LABS: BILIRUBIN,URINE NEG (NEG); CLARITY,URINE CLEAR; COLOR,URINE YELLOW; GLUCOSE,URINE NEG (NEG); NITRITE,URINE NEG (NEG); UROBILINOGEN,URINE 0.2 mg/dL (0.2 mg/dL)
[2020-12-19 23:12] LABS: BACTERIA,URINE FEW /HPF (0-FEW); SQUAMOUS EPITHELIAL CELL,UR OCC /LPF
== END 2020-12-19 23:32 | disposition home or self-care (01) ==
LOC: ER 20:40
DX: J45.909 Unspecified asthma, uncomplicated (principal); F41.9 Anxiety disorder, unspecified; M19.90 Unspecified osteoarthritis, unspecified site; F31.9 Bipolar disorder, unspecified; Z20.822 Contact with and (suspected) exposure to COVID-19; Z87.891 Personal history of nicotine dependence; Z88.1 Allergy status to other antibiotic agents; Z88.8 Allergy status to other drugs, medicaments and biological substances
CPT/HCPCS: 36415; 71275; 80053; 81001; 81025; 83605; 85025; 85379; 85610; 85730; 87086; 96361; 96374; 96375; 99285; C9803; J1100; J1885; J7030; Q9967; U0003

== ENCOUNTER 2021-01-01 22:17 | Emergency (ER) | payer OTHER ==
[~2021-01-01] VITALS: Ht 167.6 cm; Wt 101.4 kg
[~2021-01-01 22:17] MED LIST changes: +AZIT250T6 PO
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
[2021-01-01 23:40] LABS: BILIRUBIN,URINE NEG (NEG); CLARITY,URINE CLEAR; COLOR,URINE YELLOW; GLUCOSE,URINE NEG (NEG)
[2021-01-01 23:41] LABS: BACTERIA,URINE 0 /HPF (0-FEW); NITRITE,URINE NEG (NEG); RBC,URINE 0 /HPF (0-2); SQUAMOUS EPITHELIAL CELL,UR FEW /LPF; UROBILINOGEN,URINE 0.2 mg/dL (0.2 mg/dL)
[2021-01-02] MEDS ORDERED: KETOROLAC 60 MG/2 ML VIAL. IM ONE
[2021-01-02] MEDS ORDERED: ORPHENADRINE CITRATE 60 MG/2 ML VIAL. IM ONE
--- NOTE | 2021-01-02 00:26 | RAD ---
CT LUMBAR SPINE WO History:Reason: Back pain after adjustment- / Spl. Instructions: / History: Technique: Noncontrast CT was performed of the lumbar spine. Multiplanar reconstructions were perform ed. Exposure: One or more of the following individualized dose reduction techniques were utilized for thi s examination: 1. Automated exposure control 2. Adjustment of the mA and/or kV according to patient size 3. Use of iterative reconstruction technique. Comparison: None Findings: Transitional lumbosacral anatomy with sacralization of L5. L5-S1 is identified on axial series 5 imag e 71. Normal vertebral body height and alignment. No fracture. T12-L1: No canal or neuroforaminal narrowing. L1-L2: No canal or neuroforaminal narrowing. L2-L3: Minimal disc bulge. No canal or neuroforaminal narrowing. L3-L4: Small disc bulge. No canal or neuroforaminal narrowing. L4-L5: Minimal disc bulge. Mild facet arthropathy. No canal or neuroforaminal narrowing. L5-S1: No canal or neuroforaminal narrowing. Impression: 1. No acute fracture or subluxation of the lumbar spine. 2. Transitional lumbosacral anatomy with sacralization of L5. Electronically signed by: Horace Cool DO (01/02/2021 12:23 AM) [facility]
[2021-01-02 00:40] VITALS: BP 122/75
== END 2021-01-02 00:44 | disposition home or self-care (01) ==
LOC: ER 22:17
DX: S33.5XXA Sprain of ligaments of lumbar spine, initial encounter (principal); J45.909 Unspecified asthma, uncomplicated; F12.10 Cannabis abuse, uncomplicated; Z87.891 Personal history of nicotine dependence; Z88.1 Allergy status to other antibiotic agents; Z88.6 Allergy status to analgesic agent; X58.XXXA Exposure to other specified factors, initial encounter; Y93.89 Activity, other specified; Y92.89 Other specified places as the place of occurrence of the external cause; Y99.8 Other external cause status
CPT/HCPCS: 72131; 81001; 81025; 96372; 99284; J2360

== ENCOUNTER 2021-03-30 10:34 | Emergency (ER) | payer OTHER ==
[~2021-03-30] VITALS: Ht 160 cm; Wt 104.8 kg
--- NOTE | 2021-03-30 11:06 | PHYS DOC ---
Past History Past Medical History: Anxiety, Arthritis, Asthma, Bipolar, Depression, Other Additional Past Medical Histor: RA Past Surgical History: Other Additional Past Surgical Histo: ADENOIDS, eustachian tube Smoking: Quit Greater Than 1 Year Alcohol Use: None Drug Use: Marijuana General Adult EDM: Chief Complaint: CHEST PAIN HPI: HPI: 26-year-old female presents with right-sided chest pain. The patient was at work this morning during 2 people's job because mom did not show up. She was rushing around a lot and felt a lot of stress. She then began to have a pinching sensation in the right side of her chest and some shortness of breath. The chest pain is mostly resolved at this time, but she still feels like "I just cannot get a full breath". She has no history of cardiac problems. She has had asthma in the past. She is not currently using her inhaler. She denies diaphoresis. Her chest is tender to palpation. It feels better when she lays down. She denies fever or chills. Review of Systems: Review of Systems: Constitutional: Denies fever or chills Eyes: Denies change in visual acuity HENT: Denies nasal congestion or sore throat Respiratory: shortness of breath Cardiovascular: Chest pain GI: Denies abdominal pain, nausea, vomiting, bloody stools or diarrhea : Denies dysuria Musculoskeletal: Denies back pain or joint pain Integument: Denies rash Neurologic: Denies headache, focal weakness or sensory changes Endocrine: Denies polyuria or polydipsia Lymphatic: Denies swollen glands Psychiatric: Denies depression or anxiety Allergies: Allergies: Allergies Coded Allergies Type Severity Reaction Last Updated Verified amoxicillin Allergy Unknown 03/30/21 Yes clavulanic acid Allergy Unknown 03/30/21 Yes ondansetron Allergy Unknown 06/28/20 Yes sertraline Allergy Unknown 06/28/20 Yes Physical Exam: PE: Constitutional: Well developed, morbidly obese, well nourished, no acute distress, non-toxic appearance. [] HENT: Normocephalic, atraumatic, bilateral external ears normal, oropharynx moist, no oral exudates, nose normal. [] Eyes: PERRLA, EOMI, conjunctiva normal, no discharge. [] Neck: Normal range of motion, no tenderness, supple, no stridor. [] Cardiovascular: Heart rate 86, regular rhythm, no murmur. Right upper chest tender to palpation. [] Lungs & Thorax: Bilateral breath sounds clear to auscultation [] Abdomen: Bowel sounds normal, soft, no tenderness, no masses, no pulsatile masses. [] Skin: Warm, dry, no erythema, no rash. [] Back: No tenderness, no CVA tenderness. [] Extremities: No tenderness, no cyanosis, no clubbing, ROM intact, no edema. [] Neurologic: Alert and oriented X 3, normal motor function, normal sensory function, no focal deficits noted. [] Psychologic: Affect normal, judgement normal, mood anxious. [] Current Patient Data: Vital Signs: Vital Signs Date Time Temp Pulse Resp B/P (MAP) Pulse Ox O2 Delivery O2 Flow Rate FiO2 03/30/21 10:42 98.1 99 18 110/67 98 Room Air EKG: EKG: Sinus rhythm, rate eighty-six, normal axis, no ST elevation or depression. [] Radiology/Procedures: Radiology/Procedures: [] Impressions: EXAM: AP View of the chest DATE: 03/30/2021 10:46 AM INDICATION: Reason: CP / Spl. Instructions: / History: COMPARISON: CT 12/19/2020 FINDINGS: Heart is not enlarged. Mediastinal and hilar contours are normal. Patchy opacities medial left upper lung and perihilar region. No pleural effusion or pneumothorax. IMPRESSION: 1. Patchy left perihilar/medial left upper lung opacities. Findings may represent consolidative process such as pneumonia or atelectasis. This was seen on prior CT 12/19/2020. Consider further evaluation with CT or imaging follow-up to resolution. Electronically signed by: Oscar Dugan MD (03/30/2021 11:28 AM) [id number] DICTATED AND SIGNED BY: OSCAR DUGAN MD DATE: 03/30/21 1106 CC: PASCUAL FOFANA DO; REI JUNG ~MTH0 0 Heart Score: C/O Chest Pain: Yes HEART Score for Chest Pain: HEART Score for Chest Pain Response (Comments) Value History Slighlty/Non-Suspicious 0 ECG Normal 0 Age < 45 0 Risk Factors 1 or 2 Risk Factors 1 Troponin < Normal Limit 0 Total 1 Risk Factors: Risk Factors: DM, Current or recent (<one month) smoker, HTN, HLP, family history of CAD, obesity. Risk Scores: Score 0 - 3: 2.5% MACE over next 6 weeks - Discharge Home Score 4 - 6: 20.3% MACE over next 6 weeks - Admit for Clinical Observation Score 7 - 10: 72.7% MACE over next 6 weeks - Early Invasive Strategies Course & Med Decision Making: Course & Med Decision Making Pertinent Labs and Imaging studies reviewed. (See chart for details) The patient's EKG is unremarkable. She is not . Her chest x-ray shows possible early atelectasis or consolidative process but this was seen December 19, 2020. The patient's labs are unremarkable. Her presentation and her labs do not support consolidative process such as pneumonia. I have recommended that she follow-up with her primary care physician to make sure this resolves. She is stable for discharge at this time. [] Vee Disclaimer: Vee Disclaimer: This electronic medical record was generated, in whole or in part, using a voice recognition dictation system. Departure Departure: Impression: Primary Impression: Chest pain Qualified Codes: R07.9 - Chest pain, unspecified Disposition: HOME / SELF CARE / HOMELESS Condition: STABLE Referrals: REI JUNG (PCP) Patient Instructions: Chest Pain (Nonspecific), [id number] PASCUAL FOFANA DO Mar 30, 2021 11:06
--- NOTE | 2021-03-30 11:31 | RAD ---
EXAM: AP View of the chest DATE: 03/30/2021 10:46 AM INDICATION: Reason: CP / Spl. Instructions: / History: COMPARISON: CT 12/19/2020 FINDINGS: Heart is not enlarged. Mediastinal and hilar contours are normal. Patchy opacities medial left upper lung and perihilar region. No pleural effusion or pneumothorax. IMPRESSION: 1. Patchy left perihilar/medial left upper lung opacities. Findings may represent consolidative proc ess such as pneumonia or atelectasis. This was seen on prior CT 12/19/2020. Consider further evaluatio n with CT or imaging follow-up to resolution. Electronically signed by: Oscar Dugan MD (03/30/2021 11:28 AM) [id number]
[2021-03-30 11:42] LABS: BASO % 1 % (0-3); EOS # 0.2 x10^3/uL (0.0-0.7); EOS % 2 % (0-3); HEMATOCRIT 38.5 % (36.0-47.0); HEMOGLOBIN 12.9 g/dL (12.0-15.5); LYMPH # 3.1 x10^3/uL (1.0-4.8); LYMPH % 36 % (24-48); MEAN CORPUSCULAR HEMOGLOBIN 29 pg (25-35); MEAN CORPUSCULAR HGB CONC 33 g/dL (31-37); MEAN CORPUSCULAR VOLUME 85 fL (79-100); MONO # 0.9 x10^3/uL (0.0-1.1); MONO % 10 % (0-9); NEUT # 4.6 x10^3uL (1.8-7.7); NEUT % 52 % (31-73); PLATELET COUNT 281 x10^3/uL (140-400); RED BLOOD COUNT 4.53 x10^6/uL (3.50-5.40); RED CELL DISTRIBUTION WIDTH 13.6 % (11.5-14.5); WHITE BLOOD COUNT 8.8 x10^3/uL (4.0-11.0)
[2021-03-30 11:46] LABS: BARBITURATES NEG (NEG); BENZODIAZEPINES NEG (NEG); CANNABINOIDS NEG (NEG); COCAINE NEG (NEG); METHADONE NEG (NEG); OPIATES NEG (NEG); PHENCYCLIDINE NEG (NEG)
[2021-03-30 11:47] LABS: BILIRUBIN,URINE NEG (NEG); CLARITY,URINE HAZY; COLOR,URINE YELLOW; GLUCOSE,URINE NEG (NEG)
[2021-03-30 11:48] LABS: NITRITE,URINE NEG (NEG)
[2021-03-30 11:49] LABS: AMORPHOUS SEDIMENT,UR PRESENT /HPF; BACTERIA,URINE FEW /HPF (0-FEW); RBC,URINE RARE /HPF (0-2); SQUAMOUS EPITHELIAL CELL,UR MOD /LPF
[2021-03-30 11:51] LABS: CALCIUM 8.8 mg/dL (8.5-10.1); CREATININE 0.7 mg/dL (0.6-1.0); GFR 101.1; POTASSIUM 3.7 mmol/L (3.5-5.1)
[2021-03-30 11:52] LABS: AMPHETAMINE/METHAMPHETAMINE NEG (NEG)
[2021-03-30 11:58] LABS: ALBUMIN 3.5 g/dL (3.4-5.0); ALBUMIN/GLOBULIN RATIO 1.1 (1.0-1.7); TOTAL BILIRUBIN 0.2 mg/dL (0.2-1.0); TOTAL PROTEIN 6.6 g/dL (6.4-8.2)
[2021-03-30 12:13] VITALS: BP 118/67
--- NOTE | 2021-03-31 00:27 | EKG ---
[address] [address] Test Date: 2021-03-30 Test Time: 10:40:41 Pat Name: ULPE BENITEZ Department: Room: Gender: F Private Investigator: : 1995 Requested By: PASCUAL FOFANA Order Number: [id number] Reading MD: Measurements Intervals [place] Rate: 86 P: 42 PA: 156 QRS: 28 QRSD: 86 T: 28 QT: 372 QTc: 448 Interpretive Statements SINUS RHYTHM NORMAL ECG RI6.02 No previous ECG available for comparison
== END 2021-03-30 12:14 | disposition home or self-care (01) ==
LOC: ER 10:34
DX: R07.89 Other chest pain (principal); F43.9 Reaction to severe stress, unspecified; F41.9 Anxiety disorder, unspecified; M19.90 Unspecified osteoarthritis, unspecified site; J45.909 Unspecified asthma, uncomplicated; F31.9 Bipolar disorder, unspecified; E66.01 Morbid (severe) obesity due to excess calories; Z68.41 Body mass index [BMI] 40.0-44.9, adult; Z87.891 Personal history of nicotine dependence; Z88.1 Allergy status to other antibiotic agents; Z88.8 Allergy status to other drugs, medicaments and biological substances
CPT/HCPCS: 36415; 71045; 80053; 80307; 81001; 81025; 84484; 85025; 87086; 93005; 99285

== ENCOUNTER 2021-08-07 04:59 | Emergency (ER) | payer OTHER ==
[~2021-08-07] VITALS: Ht 160 cm; Wt 107.6 kg
[~2021-08-07 04:59] MED LIST changes: +CLIN-95 PO; -CLIN300C9 PO
--- NOTE | 2021-08-07 05:02 | PHYS DOC ---
Past History Past Medical History: Anxiety, Arthritis, Asthma, Bipolar, Depression, Other Additional Past Medical Histor: RA Past Surgical History: Other Additional Past Surgical Histo: ADENOIDS, eustachian tube Smoking: Quit Greater Than 1 Year Alcohol Use: None Drug Use: Marijuana General Adult HPI: HPI: ".. I coughed so much I cannot hardly sleep I been sick 2 weeks but much worse last couple days ..." Patient is a 26 year old female who presents with above hx and complaints of increased coughing.. Coughing has produce green-lantigua sputum. Patient has not gotten COVID vaccination. Patient does not know if she got flu vaccination. Patient is on Plaquenil and another immunosuppressant shot for her rheumatoid arthritis. No recent travel. No specific ill contacts. Pt. following with Dr. Obando Review of Systems: Review of Systems: Constitutional: Subjective complaints of fever Eyes: Denies change in visual acuity HENT: Denies nasal congestion or sore throat Respiratory: Complains of cough and increased sputum Cardiovascular: Denies chest pain or edema GI: Denies abdominal pain, nausea, vomiting, bloody stools or diarrhea : Denies dysuria Musculoskeletal: History of chronic myalgia and arthralgia-history of rheumatoid Integument: Denies rash Neurologic: Denies headache, focal weakness or sensory changes Endocrine: Denies polyuria or polydipsia Lymphatic: Denies swollen glands Psychiatric: Denies depression or anxiety Family History: Family History: Noncontributory presentation Current Medications: Current Meds: See nursing for home meds Allergies: Allergies: Allergies Coded Allergies Type Severity Reaction Last Updated Verified amoxicillin Allergy Unknown 03/30/21 Yes clavulanic acid Allergy Unknown 03/30/21 Yes ondansetron Allergy Unknown 06/28/20 Yes sertraline Allergy Unknown 06/28/20 Yes Physical Exam: PE: Constitutional: Moderate acute distress, non-toxic appearance. [] HENT: Normocephalic, atraumatic, bilateral external ears normal, oropharynx moist, no oral exudates, nose swollen turbinates and clear rhinorrhea Eyes: PERRLA, EOMI, conjunctiva normal, no discharge. [] Neck: Normal range of motion, no tenderness, supple, no stridor. [] Cardiovascular:Heart rate regular rhythm, no murmur [] Lungs & Thorax: Bilateral breath sounds equal at apex with scattered wheezes and basilar crackles on auscultation [] Abdomen: Bowel sounds normal, soft, no tenderness, no masses, no pulsatile masses. Obese. Skin: Warm, dry, no erythema, no rash. [] Back: No tenderness, no CVA tenderness. [] Extremities: No tenderness, no cyanosis, no clubbing, ROM intact, no edema. No cording appreciated. Neurologic: Alert and oriented X 3, normal motor function, normal sensory function, no focal deficits noted. [] Psychologic: Affect anxious, judgement normal, mood normal. [] EKG: EKG: [] Radiology/Procedures: Radiology/Procedures: [] Heart Score: C/O Chest Pain: N/A Risk Factors: Risk Factors: DM, Current or recent (<one month) smoker, HTN, HLP, family history of CAD, obesity. Risk Scores: Score 0 - 3: 2.5% MACE over next 6 weeks - Discharge Home Score 4 - 6: 20.3% MACE over next 6 weeks - Admit for Clinical Observation Score 7 - 10: 72.7% MACE over next 6 weeks - Early Invasive Strategies Course & Med Decision Making: Course & Med Decision Making Pertinent Labs and Imaging studies reviewed. (See chart for details) Use MDI 2 puffs 4 times a day. Take Zithromax 250 a day for the next 5 days. Get a home sat monitor. If your saturations drop below 90% consistently will need home oxygen history. Would get COVID vaccination in 5 to 6 months. Get flu vaccination and Pneumovax went over this acute illness. Follow-up primary care. Return if any concerns. Impression: 1. COVID- Viral Syndrome 2. Bronchiectasis 3. History of rheumatoid arthritis-on immune suppressants [] Dragon Disclaimer: Dragmelinda Disclaimer: This electronic medical record was generated, in whole or in part, using a voice recognition dictation system. Departure Departure: Referrals: REI OBANDO (PCP) Scripts Fluconazole (DIFLUCAN) 100 Mg Tablet 100 MG PO DAILY for post antibiotic for 3 Days, #3 TAB Prov: ESPERANZA SMITH MD 08/07/21 Azithromycin (ZITHROMAX) 250 Mg Tablet 250 MG PO DAILY for ANTI-BIOTIC for 5 Days, #5 TAB 0 Refills Prov: ESPERANZA SMITH MD 08/07/21 Dragon Disclaimer This chart was dictated in whole or in part using Voice Recognition software in a busy, high-work load, and often noisy Emergency Department environment. It may contain unintended and wholly unrecognized errors or omissions. Dragon Disclaimer This chart was dictated in whole or in part using Voice Recognition software in a busy, high-work load, and often noisy Emergency Department environment. It may contain unintended and wholly unrecognized errors or omissions. ESPERANZA SMITH MD Aug 07, 2021 05:02
[2021-08-07] MEDS ORDERED: ALBUTEROL SULFATE 8GM INHALER. INH ONE (05:15)
[2021-08-07 06:00] LABS: INFLUENZA A PATIENT NEGATIVE (NEGATIVE); INFLUENZA B PATIENT NEGATIVE (NEGATIVE)
[2021-08-07] MEDS ORDERED: AZITHROMYCIN 250 MG TABLET. PO ONE (06:00)
[2021-08-07] MEDS ORDERED: AZIT250T PO (06:01)
[2021-08-07] MEDS ORDERED: FLUC100T7 PO (06:01)
[2021-08-07 06:10] VITALS: BP 118/65
== END 2021-08-07 06:16 | disposition home or self-care (01) ==
LOC: ER 04:59
DX: U07.1 COVID-19 (principal); J47.9 Bronchiectasis, uncomplicated; M06.9 Rheumatoid arthritis, unspecified; J45.909 Unspecified asthma, uncomplicated; F31.9 Bipolar disorder, unspecified; Z87.891 Personal history of nicotine dependence; Z88.1 Allergy status to other antibiotic agents; Z88.8 Allergy status to other drugs, medicaments and biological substances
CPT/HCPCS: 94640; 99283; 94664

== ENCOUNTER 2021-10-06 08:34 | Emergency (ER) | payer OTHER ==
[~2021-10-06] VITALS: Ht 160 cm; Wt 107.6 kg
[~2021-10-06 08:34] MED LIST changes: +AZIT250T PO; +FLUC100T7 PO
--- NOTE | 2021-10-06 09:07 | PHYS DOC ---
Past History Past Medical History: Anxiety, Arthritis, Asthma, Bipolar, Depression, Other Additional Past Medical Histor: RA Past Surgical History: Other Additional Past Surgical Histo: ADENOIDS, eustachian tube Smoking: Quit Greater Than 1 Year Alcohol Use: None Drug Use: Marijuana Adult General Chief Complaint Chief Complaint: CONGESTION HPI HPI Patient is a 26 year old female who presents with cough and congestion. Patient reports 3-day history of illness with nonproductive cough, nasal congestion, rhinorrhea, sore throat. Reports generalized headache, not sudden in onset, not the worst headache of her life. Reports chest tightness only with coughing. Denies dyspnea. Denies vomiting or diarrhea. She reports past medical history of asthma, has not had inhaler, but states she has a prescription ready for pickup at the pharmacy. She received 1 Covid vaccine. Has been exposed to her children with similar illness, states they tested negative for Covid. Review of Systems Review of Systems Constitutional: Denies fever or chills Eyes: Denies change in visual acuity HENT: Reports nasal congestion & sore throat Respiratory: Reports cough, denies shortness of breath Cardiovascular: Reports chest pain with coughing. GI: Denies abdominal pain, nausea, vomiting, or diarrhea Musculoskeletal: Denies back pain or joint pain Integument: Denies rash Neurologic: Reports headache All other systems were reviewed and found to be within normal limits, except as documented in this note. Allergies Allergies Allergies Coded Allergies Type Severity Reaction Last Updated Verified amoxicillin Allergy Unknown 03/30/21 Yes clavulanic acid Allergy Unknown 03/30/21 Yes ondansetron Allergy Unknown 06/28/20 Yes sertraline Allergy Unknown 06/28/20 Yes Physical Exam Physical Exam Constitutional: Well developed, well nourished, no acute distress, non-toxic appearance. HENT: Normocephalic, atraumatic, bilateral external ears normal, oropharynx moist, no oral exudates, airway patent, nose normal. Eyes: PERRLA, EOMI, conjunctiva normal, no discharge. Neck: No nuchal rigidity Cardiovascular: Regular rhythm, heart rate mildly elevated low 100s. Lungs & Thorax: Lungs clear to auscultation bilaterally. Abdomen: Soft, nontender, nondistended. Skin: Warm, dry, no erythema, no rash. Back: No deformity. Extremities: No deformity, moves all extremities. Neurologic: Alert and oriented X 3, normal motor function, normal sensory function, no focal deficits noted. Psychologic: Affect normal EKG EKG [] Radiology/Procedures Radiology/Procedures XR CHEST 2V CLINICAL INDICATIONS: Reason: cough COMPARISON: March 30, 2021. Findings: No acute lung infiltrate or pleural effusion or pulmonary edema or lung mass or pneumothorax is seen. The heart size, pulmonary vasculature, mediastinum and both augusto are unremarkable. The osseous structures appear intact. IMPRESSION: No acute radiographic abnormality is seen. Electronically signed by: Peter Lord MD (10/06/2021 9:05 AM) [id number] DICTATED AND SIGNED BY: PETER LORD MD DATE: 10/06/21903 [] Heart Score C/O Chest Pain: No Risk Factors: Risk Factors: DM, Current or recent (<one month) smoker, HTN, HLP, family history of CAD, obesity. Risk Scores: Risk Factors: DM, Current or recent (<one month) smoker, HTN, HLP, family history of CAD, obesity. Course & Med Decision Making Course & Med Decision Making Pertinent Labs and Imaging studies reviewed. (See chart for details) Patient presents with upper respiratory illness. Vitals stable, mildly tachycardic upon arrival. Obtained chest x-ray and testing for influenza/Covid, no acute abnormality identified. Recommend supportive care for viral upper respiratory infection. Encouraged her to continuous pickling line pickler helper prescription for albuterol inhaler. Sent new prescriptions for Tessalon Perles and Flonase nasal spray. Instructed to rest drink fluids, take Tylenol or ibuprofen for pain or fever. Follow-up with primary care in 2 to 3 days if not improving. Return to the emergency department for high fever, severe chest pain or shortness of breath, severe dizziness, uncontrolled vomiting, any otherwise worsening condition. [] Dragon Disclaimer Dragon Disclaimer This electronic medical record was generated, in whole or in part, using a voice recognition dictation system. Departure Departure: Impression: Primary Impression: Acute upper respiratory infection, unspecified Disposition: HOME / SELF CARE / HOMELESS Condition: IMPROVED Referrals: REI JUNG (PCP) Patient Instructions: Upper Respiratory Infection, Adult, [id number] Additional Instructions: You were seen in the emergency department today for upper respiratory infection. You tested negative for influenza and Covid, and your chest x-ray was normal. This is likely an infection caused by a virus. Please rest, drink fluids to stay hydrated, use Tylenol or ibuprofen for pain or fever. I am sending prescriptions for Flonase nasal spray and Tessalon cough drops to help with your symptoms. Be sure to continuous pickling line pickler helper your prescription for your inhaler and use as directed. Follow-up with primary care doctor in 2 to 3 days if not improving. Return to the emergency department for severe shortness of breath, chest pain, dizziness, uncontrolled vomiting, any otherwise worsening condition. Scripts Fluticasone Propionate (FLUTICASONE PROPIONATE NASAL SPRAY) 16 Gm [place].susp 2 SPR NS DAILY for congestion, #1 INHALER 0 Refills Prov: VIVIENNE RIVERA MD 10/06/21 Benzonatate (BENZONATATE) 100 Mg Capsule 1 CAP PO TID for cough, #10 CAP Prov: VIVIENNE RIVERA MD 10/06/21 VIVIENNE RIVERA MD Oct 06, 2021 09:07
--- NOTE | 2021-10-06 09:08 | RAD ---
XR CHEST 2V CLINICAL INDICATIONS: Reason: cough COMPARISON: March 30, 2021. Findings: No acute lung infiltrate or pleural effusion or pulmonary edema or lung mass or pneumothora x is seen. The heart size, pulmonary vasculature, mediastinum and both augusto are unremarkable. The os seous structures appear intact. IMPRESSION: No acute radiographic abnormality is seen. Electronically signed by: Angel Lord MD (10/06/2021 9:05 AM) [id number]
[2021-10-06 09:29] LABS: INFLUENZA A PATIENT NEGATIVE (NEGATIVE); INFLUENZA B PATIENT NEGATIVE (NEGATIVE)
[2021-10-06] MEDS ORDERED: FLUT16SP21 NS (09:56)
[2021-10-06] MEDS ORDERED: BENZ-8 PO (09:56)
[2021-10-06 10:00] VITALS: BP 107/58
== END 2021-10-06 10:04 | disposition home or self-care (01) ==
LOC: ER 08:34
DX: J06.9 Acute upper respiratory infection, unspecified (principal); F41.9 Anxiety disorder, unspecified; M19.90 Unspecified osteoarthritis, unspecified site; J45.909 Unspecified asthma, uncomplicated; F31.9 Bipolar disorder, unspecified; Z20.822 Contact with and (suspected) exposure to COVID-19; Z87.891 Personal history of nicotine dependence; Z88.1 Allergy status to other antibiotic agents; Z88.8 Allergy status to other drugs, medicaments and biological substances
CPT/HCPCS: 71046; 87428; 99284